=== PATIENT | female | born 1965 ===

== ENCOUNTER → 2018-06-01 22:29 | Outpatient (REF) | payer OTHER, SELFPAY ==
[2018-06-01 23:17] LABS: Alanine Aminotransferase 31 IU/L (9-52); Albumin 4.5 g/dL (3.5-5.0); Albumin Globulin Ratio 1.9 (1.0-2.8); Alkaline Phosphatase 76 U/L (38-126); Aspartate Aminotransferase 26 IU/L (14-36); BUN Creatinine Ratio 24.3 (6-22); Bilirubin Total 0.2 mg/dL (0.2-1.3); Blood Urea Nitrogen 17 mg/dL (7-17); Calcium 9.8 mg/dL (8.4-10.2); Carbon Dioxide 26 mmol/L (22-32); Chloride 104 mmol/L (98-107); Estimated Glomerular Filt Rate > 60.0 mL/min (>60); Globulin 2.4 g/dL (1.7-4.1); Glucose 82 mg/dL (70-100); HEMOLYSIS < 15 (0-50); Potassium 4.4 mmol/L (3.4-5.1); Sodium 145 mmol/L (137-145); Total Protein 6.9 g/dL (6.3-8.2)
[2018-06-03 14:57] LABS: Estradiol < 15 pg/mL
[2018-06-03 15:00] LABS: Progesterone 0.6 ng/mL
[2018-06-04 18:54] LABS: Albumin 4.3 g/dL (3.6-5.1); Sex Hormone Binding Globulin 70 nmol/L (17-124); Testosterone, Bioavailable 2.9 ng/dL (0.5-8.5); Testosterone, Total 23 ng/dL (2-45); Testosterone,Free 1.5 pg/mL (0.2-5.0)
== END ==
LOC: LAB 22:29
PROVIDERS: Naturopath; Visit Provider Family Medicine
DX: N95.1 Menopausal and female climacteric states (principal)
CPT/HCPCS: 80053; 82040; 82670; 84144; 84270; 84403

== ENCOUNTER → 2018-07-02 21:55 | Outpatient (REF) | payer OTHER, SELFPAY | LOC: LAB 21:55 | PROVIDERS: Visit Provider Physician Assistant | DX: N39.0 Urinary tract infection, site not specified (principal) | CPT/HCPCS: 87086 ==

== ENCOUNTER → 2018-10-07 21:12 | Outpatient (REF) | payer OTHER, SELFPAY ==
[2018-10-08 07:12] LABS: Specimen Label INREACH
== END ==
LOC: LAB 21:12
PROVIDERS: Visit Provider Naturopath
DX: Z00.00 Encounter for general adult medical examination without abnormal findings (principal)
CPT/HCPCS: 36415